=== PATIENT | male | born 1950 | race Caucasian/White ===

== ENCOUNTER 2021-12-09 13:16 | Outpatient (CLI) | payer MEDICARE, OTHER, SELFPAY ==
--- NOTE | ~2021-12-09 | CT_ITS ---
EXAMINATION: CT brain & sinus wo con DATE: 12/09/2021 13:50 INDICATION: Dizziness and giddiness. Sinusitis. TECHNIQUE: Computed tomography (CT) of the head and paranasal sinuses was performed without intraveno us contrast. The mA was adjusted according to patient size. Iterative reconstruction technique was em ployed. The dose-length product was 756.67 mGy-cm. COMPARISON: Head CT 04/04/2012 FINDINGS: CT HEAD: There are scattered areas of low attenuation in the cerebral white matter, which is within n ormal limits for the patient's age. There is no intracranial hemorrhage, acute infarction, or abnorma l intracranial mass lesion. The ventricles are normal in size. The orbits are normal. The mastoid air cells are normal. CT SINUSES: There is mild mucosal thickening in right maxillary sinus and the bilateral ethmoid sinus es and sphenoid sinuses. There is minimal mucosal thickening in inferior right maxillary sinus. There is leftward deviation of superior nasal septum and rightward deviation of the inferior nasal septum. 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 The ostiomeatal units are patent. There is shasha bullosa invol ving left middle turbinate. IMPRESSION: 1. Normal aging brain. 2. Mild mucosal thickening in the paranasal sinuses. 3. Leftward deviation of superior nasal septum and rightward deviation of the inferior nasal septum. Reviewed, dictated and finalized at location A. IMPRESSION: 1. Normal aging brain. 2. Mild mucosal thickening in the paranasal sinuses. 3. Leftward deviation of superior nasal septum and rightward deviation of the i nferior nasal septum.
== END 2021-12-09 13:17 | disposition home or self-care (01) ==
PROVIDERS: PCP Family Medicine; Visit Provider Physician Assistant Medical
DX: R42 Dizziness and giddiness (principal); J34.2 Deviated nasal septum; J32.8 Other chronic sinusitis
CPT/HCPCS: 70450; 70486

== ENCOUNTER 2022-03-28 09:26 | Outpatient (CLI) | payer MEDICARE, OTHER, SELFPAY ==
--- NOTE | ~2022-03-28 | MR_ITS ---
EXAMINATION: MR lumbar spine wo con DATE: 03/28/2022 10:36 INDICATION: Chronic low back pain. TECHNIQUE: Magnetic resonance imaging (MRI) of the lumbar spine was performed without intravenous con trast. Sequences included sagittal T2-weighted FSE, sagittal T2-weighted FS FSE, sagittal T1-weighted FSE, and axial T2-weighted FSE. COMPARISON: Lumbar spine MRI 06/03/2019 FINDINGS: There is 4 degrees levocurvature of lumbar spine. There is a chronic burst fracture of L1 w ith 2/5 loss of height and changes of vertebroplasty. There is mildly decreased disc height at L2-L3 and L4-L5. The distal spinal cord signal intensity is normal. The conus medullaris is at L1. The foll owing disc levels are specifically discussed: L1-L2: The disc is bulging. There is severe bilateral facet joint osteoarthritis. There is mild left neural foraminal stenosis. There is mild central canal stenosis. L2-L3: The disc is bulging and has an annular fissure. There is severe bilateral facet joint osteoart hritis. There is mild bilateral neural foraminal stenosis. There is mild central canal stenosis. L3-L4: The disc is bulging. There is moderate bilateral facet joint osteoarthritis. There is mild charlie ateral neural foraminal stenosis. There is mild central canal stenosis. L4-L5: The disc is bulging and has an annular fissure. There is severe bilateral facet joint osteoart hritis. There is hypertrophy of the ligamentum flavum. There is mild bilateral neural foraminal steno sis. There is moderate central canal stenosis. L5-S1: The disc is bulging. There is moderate bilateral facet joint osteoarthritis. There is mild rig ht neural foraminal stenosis. There is mild central canal stenosis. IMPRESSION: 1. Moderate central canal stenosis at L4-L5, stable from 06/03/2019. Otherwise mild lumbar spondylosis , stable from 06/03/2019. Reviewed, dictated and finalized at location A. IMPRESSION: 1. Moderate central canal stenosis at L4-L5, stable from 06/03/2019. Otherwise m ild lumbar spondylosis, stable from 06/03/2019.
== END 2022-03-28 09:27 | disposition home or self-care (01) ==
LOC: ANHIMG 09:31
PROVIDERS: PCP Family Medicine; Visit Provider Physician Assistant Medical
DX: R32 Unspecified urinary incontinence (principal); M54.30 Sciatica, unspecified side; M47.896 Other spondylosis, lumbar region
CPT/HCPCS: 72148

== ENCOUNTER 2022-04-14 10:35 | Outpatient (CLI) | payer MEDICARE, OTHER, SELFPAY ==
--- NOTE | ~2022-04-14 | US_ITS ---
EXAMINATION: US aorta [facility] DATE: 04/14/2022 11:31 INDICATION: Personal history of nicotine dependence TECHNIQUE: Grayscale, color Doppler, and pulsed Doppler images of the aorta and common iliac arteries were obtained. COMPARISON: None. FINDINGS: Maximum vascular dimensions are as follows: Proximal aorta: Not visualized. Mid aorta: 1.8 cm Distal aorta: 1.8 cm Right common iliac artery: 1.1 cm Left common iliac artery: 1.1 cm There is no evidence of abdominal aortic aneurysm, proximal aorta obscured by bowel gas. IMPRESSION: 1. No sonographic evidence of abdominal aortic aneurysm, proximal aorta obscured by bowel gas. Reviewed, dictated and finalized at location A. IMPRESSION: 1. No sonographic evidence of abdominal aortic aneurysm, proximal aorta obscure d by bowel gas.
== END 2022-04-14 10:36 | disposition home or self-care (01) ==
PROVIDERS: PCP Family Medicine; Visit Provider Internal Medicine Cardiovascular Disease
DX: Z87.891 Personal history of nicotine dependence (principal)
CPT/HCPCS: 76706

== ENCOUNTER 2023-05-03 12:07 | Outpatient (NON) | payer MEDICARE, OTHER, SELFPAY | END 2023-05-03 12:08 | disposition home or self-care (01) | LOC: ANHLAB 05-04 12:12 | PROVIDERS: PCP Family Medicine; Visit Provider Nurse Practitioner | DX: C44.319 Basal cell carcinoma of skin of other parts of face (principal); C44.612 Basal cell carcinoma of skin of right upper limb, including shoulder | CPT/HCPCS: 88305 ==

== ENCOUNTER 2023-06-27 14:40 | Outpatient (NON) | payer MEDICARE, OTHER, SELFPAY | END 2023-06-27 14:41 | disposition home or self-care (01) | LOC: ANHLAB 14:40 | PROVIDERS: PCP Family Medicine; Visit Provider Nurse Practitioner | DX: C44.319 Basal cell carcinoma of skin of other parts of face (principal); C44.612 Basal cell carcinoma of skin of right upper limb, including shoulder | CPT/HCPCS: 88305; 88331 ==